=== PATIENT | male | born 1970 | race Caucasian/White ===

== ENCOUNTER 2017-09-26 11:08 | Emergency (ER) | payer BC ==
[~2017-09-26] VITALS: Ht 175.3 cm; Wt 85.1 kg
[2017-09-26] MEDS ORDERED: KEFLEX500 MG PO (13:24)
[2017-09-26 13:31] VITALS: BP 150/96
== END 2017-09-26 13:44 | disposition home or self-care (01) ==
LOC: EME 11:08
PROC: 2W3KX1Z Immobilization of Left Finger using Splint (ICD-10-PCS; principal; 2017-09-26)
PROC: 0HQGXZZ Repair Left Hand Skin, External Approach (ICD-10-PCS; principal; 2017-09-26)
DX: S62.631B Displaced fracture of distal phalanx of left index finger, initial encounter for open fracture (principal); S61.211A Laceration without foreign body of left index finger without damage to nail, initial encounter; W23.0XXA Caught, crushed, jammed, or pinched between moving objects, initial encounter; Y93.89 Activity, other specified
CPT/HCPCS: 73130; 99281; 99284; S0020